=== PATIENT | female | born 1935 | race Caucasian/White ===

== ENCOUNTER → 2016-12-11 | Outpatient (CLI) | payer OTHER, MEDICARE | LOC: FIMAGING 15:07 | PROVIDERS: ATTEND Orthopaedic Surgery | DX: Z01.818 Encounter for other preprocedural examination (principal); M17.11 Unilateral primary osteoarthritis, right knee ==

== ENCOUNTER 2016-12-24 08:39 | Observation (INO) | payer OTHER, MEDICARE ==
[2016-12-11 16:18] LABS: % IMMATURE GRANULYOCYTES 0.3 % (0.0-1.1); ABSOLUTE IMMATURE GRANULOCYTES 0.02 10^3/uL (0.00-0.10); ADD DIFF? NO; ADD MORPH? NO; ADD SCAN? NO; ATYPICAL LYMPHOCYTE FLAG 10 (0-99); FRAGMENT RBC FLAG 10 (0-99); HEMATOCRIT 43.1 % (38.0-47.0); HEMOGLOBIN 14.5 g/dL (12.6-16.3); LEFT SHIFT FLG 0 (0-99); LIPEMIA HEMOLYSIS FLAG 80 (0-99); MEAN CELL HEMOGLOBIN 31.5 pg (27.9-34.1); MEAN CELL HEMOGLOBIN CONCENTR. 33.6 g/dL (32.4-36.7); MEAN CELL VOLUME 93.7 fL (81.5-99.8); MEAN PLATELET VOLUME 9.9 fL (8.7-11.7); PLATELET CLUMPS FLAG 0 (0-99); PLATELET COUNT 260 10^3/uL (150-400); RED CELL DISTRIBUTION WIDTH 13.5 % (11.5-15.2)
--- NOTE | 2016-12-12 07:53 | CPEKG ---
Heart Rate: 82 RR Interval: 732 P-R Interval: 128 QRSD Interval: 94 QT Interval: 376 QTC Interval: 439 P [place]: 75 QRS [place]: 4 T Wave [place]: 68 EKG Severity - ABNORMAL ECG - EKG Impression: SINUS RHYTHM EKG Impression: CONSIDER ANTEROSEPTAL INFARCT Electronically Signed By: Cale Mckeon 12-Dec-2016 12:47:02
[~2016-12-24 08:39] MED LIST: ACETAMINOPHEN 325 MG TAB PO ONE; CEFAZOLIN 2 GM/DEXTR 100 ML IV ONE; CHLORHEXIDINE GLUC HIBICLENS 118 ML BTL TP ONE; DEXAMETHASONE 4 MG/ML VIAL IVP ONE; FAMOTIDINE 20 MG TAB PO ONE; ROPI/epiNEPH/KETOROLAC JOINT COCKTAIL IU ONE; TRANEXAMIC ACID 3,000 MG in NS 50 ML IRR ONE; TRANEXAMIC ACID 3,000 MG/50 ML BAG IRR ONE; VANCOMYCIN 1 GM VIAL IV ONE
[2016-12-24] MEDS ORDERED: FAMOTIDINE 20 MG TAB ONE (09:27)
[2016-12-24] MEDS ORDERED: DEXAMETHASONE 4 MG/ML VIAL ONE (09:27)
[2016-12-24] MEDS ORDERED: CEFAZOLIN 2 GM/DEXTROSE/100 ML BAG IV ONE (09:27)
[2016-12-24] MEDS ORDERED: ACETAMINOPHEN 325 MG TAB ONE (09:31)
[2016-12-24] MEDS ORDERED: ACETAMINOPHEN 500 MG TAB ONE (09:46)
[2016-12-24] MEDS ORDERED: MIDAZOLAM 2 MG/2 ML VIAL ONE ×2 (10:03→10:52)
[2016-12-24] MEDS ORDERED: PROPOFOL/EMULSION 500 MG/50 ML BOTTLE IV ONE (10:03)
[2016-12-24] MEDS ORDERED: fentaNYL 100 MCG/2 ML INJ ONE (10:03)
[2016-12-24] MEDS ORDERED: LR 1,000 ML IV ONE (10:56)
[2016-12-24] MEDS ORDERED: BUPIVACAINE/EPI 0.5% 30 ML SDV ONE (11:09)
[2016-12-24] MEDS ORDERED: MAGNESIUM HYDROXIDE 30 ML UDCUP PO PRN (11:36)
[2016-12-24] MEDS ORDERED: ONDANSETRON DISINTEGRATING 4 MG TAB PO PRN (11:36)
[2016-12-24] MEDS ORDERED: TEMAZEPAM 15 MG CAP PO PRN (11:36)
[2016-12-24] MEDS ORDERED: oxyCODONE IR 5 MG TAB PO PRN (11:36)
[2016-12-24] MEDS ORDERED: PHARMACY PAIN CONSULT 1 EA MISC PRN (11:36)
[2016-12-24] MEDS ORDERED: PROMETHAZINE HCL 25 MG SUPPR PR PRN (11:36)
[2016-12-24] MEDS ORDERED: BISACODYL 10 MG SUPP PR PRN (11:36)
[2016-12-24] MEDS ORDERED: POLYETHYLENE GLYCOL 3350 17 GM PKT PO PRN (11:36)
[2016-12-24] MEDS ORDERED: CYCLOBENZAPRINE 10 MG TAB PO PRN (11:36)
[2016-12-24] MEDS ORDERED: LACTULOSE 20 GM/30 ML UDCUP PO PRN (11:36)
[2016-12-24] MEDS ORDERED: ONDANSETRON 4 MG/2 ML VIAL IVP PRN (11:36)
[2016-12-24] MEDS ORDERED: METOCLOPRAMIDE 10 MG/2 ML VIAL IVP PRN (11:36)
[2016-12-24] MEDS ORDERED: diphenhydrAMINE 25 MG CAP PO PRN (11:36)
[2016-12-24] MEDS ORDERED: LR 1,000 ML IV SCH (12:00)
[2016-12-24] MEDS: ACETAMINOPHEN 325 MG TAB PO SCH ×2 (12:17→16:50)
--- NOTE | 2016-12-24 12:25 | POSTOPPROG ---
Post Op Note Date of Operation: 12/24/16 Surgeon: Leonidas Benson Solar Manager: Ekaterina Benson PAc Anesthesiologist: Mari Anesthesia: Spinal Pre-op Diagnosis: R knee DJD Post-op Diagnosis: same Indication: pain Procedure: R med mpl Findings: med OA Inf/Abcess present in the surg proc area at time of surgery?: No EBL: 50-100
[2016-12-24] MEDS: ceFAZolin 2 GM/DEXTROSE 100 ML IV SCH (16:46)
[2016-12-24] MEDS: ASPIRIN 325 MG TAB PO SCH (20:06)
[2016-12-24] MEDS: CYCLOSPORINE 0.05% 1 EACH BOX EACHEYE SCH (20:06)
[2016-12-24] MEDS: SENNOSIDES/DOCUSATE SODIUM TAB PO SCH (20:06)
[2016-12-24] MEDS: FAMOTIDINE 20 MG TAB PO SCH (20:06)
[2016-12-25] MEDS: ceFAZolin 2 GM/DEXTROSE 100 ML IV SCH (00:15)
[2016-12-25] MEDS: ACETAMINOPHEN 325 MG TAB PO SCH ×3 (00:15→11:46)
[2016-12-25 05:33] LABS: HEMATOCRIT 38.4 % (38.0-47.0); HEMOGLOBIN 13.1 g/dL (12.6-16.3)
[2016-12-25 05:46] LABS: ANION GAP 9 mEq/L (8-16); CALCIUM 9.5 mg/dL (8.5-10.4); CARBON DIOXIDE 23 mEq/l (22-31); CHLORIDE 109 mEq/L (97-110); CREATININE 0.9 mg/dL (0.6-1.0); GLOMERULAR FILTRATION RATE > 60; GLUCOSE 88 mg/dL (70-100); POTASSIUM 4.5 mEq/L (3.5-5.2); SODIUM 141 mEq/L (134-144)
[2016-12-25 05:54] VITALS: RESP 18
[2016-12-25 08:05] VITALS: BP 144/72; PULSE 92; O2SAT 98
[2016-12-25 08:50] VITALS: TEMP 97.7
[2016-12-25] MEDS ORDERED: ATORVASTATIN CALCIUM 10 MG TAB PO SCH (09:00)
--- NOTE | 2016-12-25 09:18 | SOAPPROG ---
SOAP Progress Note Assessment/Plan: Assessment: Patient is doing well POD 1 s/p R med MPL Pain management: pain is well controlled on oral pain meds. VTE ppx: recommend aspirin daily for 3 weeks, cont WENCESLAO and SCDs D/c planning: d/c to home today pending release from PT postop urinary retention: straight cath'd yesterday, resolved today. Plan: 12/25/16 09:16 Subjective: Rosina is doing well today ,denies SOB, chest pain and N/V Objective: Vital Signs Temp Pulse Resp BP Pulse Ox 36.5 C 92 18 144/72 H 98 12/25/16 08:49 12/25/16 08:03 12/25/16 08:03 12/25/16 08:03 12/25/16 08:03 Laboratory Results 12/25/16 04:40 12/25/16 04:40 12/24/16 12/25/16 12/26/16 05:59 05:59 05:59 Intake Total 1890 Output Total 1730 Balance 160 RLE: incision dressing is clean and dry, NVI, +pf/df ICD10 Worksheet Patient Problems: Problems Problem Status Onset Primary localized osteoarthritis of right knee Acute
--- NOTE | 2016-12-25 09:46 | GDS ---
[f rep st] DISCHARGE SUMMARY ADMISSION DIAGNOSIS: Right knee osteoarthritis. DISCHARGE DIAGNOSIS: Right knee osteoarthritis. PROCEDURE: Right partial knee arthroplasty, medial compartment, robot assisted. VTE PROPHYLAXIS: Aspirin recommended for 3 weeks daily. BRIEF DESCRIPTION OF HOSPITAL STAY: Patient was admitted for an elective joint arthroplasty. The p atient tolerated the procedure well and has passed physical therapy. The patient was given appropri ate antibiotic prophylaxis and venous thromboembolism prophylaxis. The patient's pain was well cont rolled on oral pain medication, patient was holding down food, and had urinated. Decision was made to discharge the patient. The patient was given post-operative prescriptions pre-operatively. PLAN: Please follow up as scheduled in Dr. Benson's office on January 15 at 1:45 p.m. /[id number]/MODL
[2016-12-25] MEDS: ASPIRIN 325 MG TAB PO SCH (09:54)
[2016-12-25] MEDS: SENNOSIDES/DOCUSATE SODIUM TAB PO SCH (09:54)
[2016-12-25] MEDS: FAMOTIDINE 20 MG TAB PO SCH (09:54)
[2016-12-25] MEDS: CYCLOSPORINE 0.05% 1 EACH BOX EACHEYE SCH (09:55)
--- NOTE | 2016-12-25 16:28 | GOP ---
[f rep st] OPERATIVE REPORT DATE OF OPERATION: 12/24/2016 SURGEON: Sparkle Benson MD COSTUME TECHNICIAN: DEVON Santillan PREOPERATIVE DIAGNOSIS: Right knee osteoarthritis. POSTOPERATIVE DIAGNOSIS: Right knee osteoarthritis. PROCEDURE PERFORMED: Right medial compartment partial knee replacement with computer navigation and robotic assist. ANESTHESIA: Spinal. FINDINGS: Severe medial OA ESTIMATED BLOOD LOSS: 30 cc. INDICATIONS: This is a 81 year old female with progressive pain of the right knee unresponsive to conservative care. Risks and benefits of surgical intervention were explained in detail. DESCRIPTION OF PROCEDURE: The patient was brought to the operating room and placed on the table in supine position. Spinal anesthesia was induced without difficulty. A pneumatic tourniquet was applied about the right proximal thigh and the leg was prepped and draped in sterile fashion. Attention was turned first to the distal aspect of the right femur. At 3 cm proximal to the lateral rise of the femur, 2 percutaneous half pins were placed for fixation of the femoral array. In a similar fashion, 2 pins were placed anterolateral on the tibia for fixation of the tibial array. External land marking and registration of the hip center was performed without difficulty. After exsanguination by elevation, the tourniquet was inflated to 250 mmHg. Incision was made from the tibial tuberosity to the superior pole of the patella. Dissection was carried out through the subcutaneous tissue to the deep fascia using Bovie electrocautery for hemostasis. Medial parapatellar arthrotomy was carried out to the superior pole of the patella. The medial collateral ligament was elevated and the infrapatellar fat pad was resected. Internal femoral and tibial registration was carried out without difficulty and the femoral and tibial checkpoints were placed and verified for accuracy. Attention was turned to the femur. The foot print for the size 2 femoral component was cut with the 6 mm bur using the [employer] robotic system and verified for accuracy against the CT based plan. The hole was cut for the femoral post. In a similar fashion, the 6 mm bur was used to cut the foot print for the size 3 tibial component using the [employer] system and verified for accuracy against the CT based plan. Attention was turned to the posterior aspect of the knee and remnants of the medial meniscus were excised. The posterior capsule was injected with ropivacaine, epinephrine and Toradol. Trial reduction was carried out and there was excellent range of motion, alignment and stability using the size 2 femoral component and the size 3 tibial component, 3 x 8 mm polyethylene. All trials were then removed. The joint was thoroughly irrigated and carefully dried. One package of cement and 1 gram of vancomycin were mixed in the vacuum mixer and placed on the fixation surfaces of all components. The components were implanted and all excess cement was thoroughly removed. Implant placement was verified against the CT view plan and found to be excellent. The tourniquet was deflated and all bleeders were coagulated. The wound was thoroughly irrigated and closed using interrupted sutures of 2-0 Vicryl for the joint capsule. The subcu was closed with 3-0 Vicryl and the skin with 4-0 Monocryl. Dermabond and Steri-Strips were applied, followed by a compressive dressing. The patient was then moved from the operating room to the recovery room in good condition, having tolerated the procedure well. CASE CLASSIFICATION: Clean. /[id number]/MODL MTDD
== END 2016-12-25 13:02 | disposition home or self-care (01) ==
LOC: INTOOBSV 08:39 → F3N 08:39
PROVIDERS: ADMIT Orthopaedic Surgery; ATTEND Orthopaedic Surgery
PROC: 8E0YXBZ Computer Assisted Procedure of Lower Extremity (ICD-10-PCS; principal; 2016-12-24 11:15)
PROC: 0SRC0JZ Replacement of Right Knee Joint with Synthetic Substitute, Open Approach (ICD-10-PCS; principal; 2016-12-24 11:15)
DX: M17.11 Unilateral primary osteoarthritis, right knee (principal)
CPT/HCPCS: 20985; 27446; 73560; 93005; 97116; 97161; 97165; C1713; C1776; G8978; G8979; G8980; G8987; G8988; G8989; J0171; J0690; J1100; J1885; J2250; J2704; J2795; J3010; J3370

== ENCOUNTER → 2017-02-19 | Outpatient (CLI) | payer OTHER, MEDICARE | LOC: FIMAGING 13:53 | PROVIDERS: ATTEND Orthopaedic Surgery | DX: M17.12 Unilateral primary osteoarthritis, left knee (principal); M25.462 Effusion, left knee ==

== ENCOUNTER 2017-02-27 05:48 | Observation (INO) | payer OTHER, MEDICARE ==
[2017-02-27] MEDS ORDERED: ROPIVACAINE 0.2% 80 MG, EPINEPHrine 0.2 MG, KETOROLAC TROMETHAMINE 30 MG in BAG 0 ML IU ONE (06:00)
[2017-02-27] MEDS ORDERED: TRANEXAMIC ACID 3,000 MG in NS 50 ML IRR ONE (06:00)
[2017-02-27] MEDS ORDERED: NON-FORMULARY NEW DRUG (Cyclosporine 0.05% [Restasis Opht Drops(*)] 1 DROP) EACHEYE SCH (06:12)
[2017-02-27] MEDS ORDERED: ceFAZolin 2 GM/DEXTROSE 100 ML IV ONE (06:12)
[2017-02-27] MEDS ORDERED: ACETAMINOPHEN 325 MG TAB PO ONE (06:12)
[2017-02-27] MEDS ORDERED: FAMOTIDINE 20 MG TAB PO ONE (06:12)
[2017-02-27] MEDS ORDERED: DEXAMETHASONE 4 MG/ML VIAL IVP ONE (06:12)
[2017-02-27] MEDS ORDERED: LR 1,000 ML IV ONE (06:19)
[2017-02-27] MEDS ORDERED: LIDOCAINE 1% 2 ML INJ ID PRN (06:19)
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
[2017-02-27] MEDS ORDERED: TRANEXAMIC ACID 3,000 MG/50 ML BAG IRR ONE (06:32)
[2017-02-27] MEDS ORDERED: VANCOMYCIN 1 GM VIAL ONE (06:32)
[2017-02-27] MEDS ORDERED: LIDOCAINE 1% 2 ML INJ ONE (06:36)
--- NOTE | 2017-02-27 07:02 | PDHPUP ---
History & Physical Update H&P update statement: This history and physical update is based on an assessment of the patient which was completed after admission or registration (within 24 hours), but prior to the surgery/procedure. H&P update: H&P reviewed & patient examined, no change in patient's condition since H&P completed
[2017-02-27] MEDS ORDERED: MIDAZOLAM 2 MG/2 ML VIAL IVP ONE (07:11)
[2017-02-27] MEDS ORDERED: MIDAZOLAM 2 MG/2 ML VIAL ONE (07:12)
[2017-02-27] MEDS ORDERED: fentaNYL 100 MCG/2 ML INJ ONE (07:14)
[2017-02-27] MEDS ORDERED: PROPOFOL 200 MG/20 ML VIAL ONE ×2 (07:15→07:48)
[2017-02-27] MEDS ORDERED: ROPIVACAINE HCL 150 MG/30 ML INJ ONE (08:09)
[2017-02-27] MEDS ORDERED: clonIDINE 1 MG/10 ML VIAL EP ONE (08:09)
[2017-02-27] MEDS ORDERED: fentaNYL 100 MCG/2 ML INJ IVP PRN (08:25)
[2017-02-27] MEDS ORDERED: NALOXONE HCL 0.4 MG/ML INJ IVP PRN (08:25)
[2017-02-27] MEDS ORDERED: BISACODYL 10 MG SUPP PR PRN (08:49)
[2017-02-27] MEDS ORDERED: CYCLOBENZAPRINE 10 MG TAB PO PRN (08:49)
[2017-02-27] MEDS ORDERED: PHARMACY PAIN CONSULT 1 EA MISC PRN (08:49)
[2017-02-27] MEDS ORDERED: LACTULOSE 20 GM/30 ML UDCUP PO PRN (08:49)
[2017-02-27] MEDS ORDERED: ONDANSETRON 4 MG/2 ML VIAL IVP PRN (08:49)
[2017-02-27] MEDS ORDERED: MAGNESIUM HYDROXIDE 30 ML UDCUP PO PRN (08:49)
[2017-02-27] MEDS ORDERED: METOCLOPRAMIDE 10 MG/2 ML VIAL IVP PRN (08:49)
[2017-02-27] MEDS ORDERED: TEMAZEPAM 15 MG CAP PO PRN (08:49)
[2017-02-27] MEDS ORDERED: ONDANSETRON DISINTEGRATING 4 MG TAB PO PRN (08:49)
[2017-02-27] MEDS ORDERED: diphenhydrAMINE 25 MG CAP PO PRN (08:49)
[2017-02-27] MEDS ORDERED: POLYETHYLENE GLYCOL 3350 17 GM PKT PO PRN (08:49)
--- NOTE | 2017-02-27 08:49 | POSTOPPROG ---
Post Op Note Date of Operation: 02/27/17 Surgeon: Leonidas Hollingsworth Panama Hat Blocker: ruslan hollingsworth Anesthesiologist: dr. burger Anesthesia: Spinal, Other (Specify) (adductor canal block) Pre-op Diagnosis: left knee OA Post-op Diagnosis: same Indication: left knee pain that failed conservative measures Procedure: L med MPL robot assisted Findings: severe knee OA Inf/Abcess present in the surg proc area at time of surgery?: No EBL: 50-100
[2017-02-27] MEDS ORDERED: ATORVASTATIN CALCIUM 10 MG TAB PO SCH ×2 (09:00→21:00)
[2017-02-27] MEDS ORDERED: LR 1,000 ML IV SCH (09:00)
--- NOTE | 2017-02-27 09:07 | POSTANESTH ---
Post Anesthetic Evaluation Cardiovascular Status: Normal, Stable Respiratory Status: Normal, Stable Level of Consciousness/Mental Status: Can Participate in Eval Pain Control: Adequate, Prn Tx Ordered Nausea/Vomiting Control: Adequate, Prn Tx Ordered Complications Possibly Related to Anesthesia: None Noted
[2017-02-27] MEDS: ACETAMINOPHEN 325 MG TAB PO SCH ×3 (12:07→23:35)
[2017-02-27] MEDS: SENNOSIDES/DOCUSATE SODIUM TAB PO SCH ×2 (13:45→20:14)
[2017-02-27] MEDS: ceFAZolin 2 GM/DEXTROSE 100 ML IV SCH ×2 (13:58→22:22)
[2017-02-27] MEDS: CYCLOSPORINE 0.05% 1 EACH BOX EACHEYE SCH ×2 (16:55→20:18)
[2017-02-27 19:44] VITALS: RESP 16
[2017-02-27] MEDS: FAMOTIDINE 20 MG TAB PO SCH (20:13)
[2017-02-27] MEDS: ASPIRIN 325 MG TAB PO SCH (20:14)
[2017-02-27] MEDS: oxyCODONE IR 5 MG TAB PO PRN (23:38)
[2017-02-28 05:18] LABS: HEMATOCRIT 38.4 % (38.0-47.0)
[2017-02-28 05:29] LABS: ANION GAP 11 mEq/L (8-16); CALCIUM 9.8 mg/dL (8.5-10.4); CARBON DIOXIDE 22 mEq/l (22-31); CHLORIDE 109 mEq/L (97-110); GLOMERULAR FILTRATION RATE 53; GLUCOSE 85 mg/dL (70-100); POTASSIUM 4.3 mEq/L (3.5-5.2); SODIUM 142 mEq/L (134-144)
[2017-02-28] MEDS: oxyCODONE IR 5 MG TAB PO PRN ×2 (05:55→11:40)
[2017-02-28] MEDS: ACETAMINOPHEN 325 MG TAB PO SCH ×2 (05:55→11:41)
[2017-02-28 08:16] VITALS: BP 111/47; PULSE 88; TEMP 98; O2SAT 97
[2017-02-28] MEDS ORDERED: NON-FORMULARY NEW DRUG (Simvastatin [Zocor] 20 MG) PO SCH (09:00)
[2017-02-28] MEDS: SENNOSIDES/DOCUSATE SODIUM TAB PO SCH (09:51)
[2017-02-28] MEDS: FAMOTIDINE 20 MG TAB PO SCH (09:51)
[2017-02-28] MEDS: ASPIRIN 325 MG TAB PO SCH (09:51)
[2017-02-28] MEDS: CYCLOSPORINE 0.05% 1 EACH BOX EACHEYE SCH (09:52)
--- NOTE | 2017-02-28 09:54 | SOAPPROG ---
SOAP Progress Note Assessment/Plan: Assessment: Rosina is doing well POD 1 s/p L med MPL 1) pain management: pain is well controlled on oral pain meds 2) VTE ppx: recommend aspirin daily and WENCESLAO hose 3) d/c planning: d/c to home pending release from PT today Plan: 02/28/17 09:52 Subjective: Rosina is doing well this morning, denies SOB ,chest pain and N/V. Objective: Vital Signs Temp Pulse Resp BP Pulse Ox 36.7 C 88 16 111/47 L 97 02/28/17 08:00 02/28/17 08:00 02/28/17 08:00 02/28/17 08:00 02/28/17 08:00 Laboratory Results 02/28/17 04:30 02/28/17 04:30 02/27/17 02/28/17 03/01/17 05:59 05:59 05:59 Intake Total 3400 Output Total 2975 Balance 425 LLE: incisino dressing is clean and dry, NVI, +pf/df ICD10 Worksheet Patient Problems: Problems Problem Status Onset Primary localized osteoarthritis of right knee Acute
--- NOTE | 2017-03-05 07:08 | GOP ---
[f rep st] OPERATIVE REPORT DATE OF OPERATION: 02/27/2017 SURGEON: Sparkle Benson MD EDUCATIONAL COORDINATOR: NACHO Riley. ANESTHESIA: Spinal. PREOPERATIVE DIAGNOSIS: Left knee osteoarthritis. POSTOPERATIVE DIAGNOSIS: Left knee osteoarthritis. PROCEDURE PERFORMED: Left medial partial knee replacement. FINDINGS: INDICATIONS: This is an 82-year-old female with progressive pain of the left knee unresponsive to conservative care. Risks and benefits of surgical intervention were explained in detail. DESCRIPTION OF PROCEDURE: The patient was brought to the operating room and placed on the table in supine position. Spinal anesthesia was induced without difficulty. A pneumatic tourniquet was applied about the left proximal thigh and the leg was prepped and draped in sterile fashion. Attention was turned first to the distal aspect of the left femur. At 3 cm proximal to the lateral rise of the femur, 2 percutaneous half pins were placed for fixation of the femoral array. In a similar fashion, 2 pins were placed anterolateral on the tibia for fixation of the tibial array. External land marking and registration of the hip center was performed without difficulty. After exsanguination by elevation, the tourniquet was inflated to 250 mmHg. Incision was made from the tibial tuberosity to the superior pole of the patella. Dissection was carried out through the subcutaneous tissue to the deep fascia using Bovie electrocautery for hemostasis. Medial parapatellar arthrotomy was carried out to the superior pole of the patella. The medial collateral ligament was elevated and the infrapatellar fat pad was resected. Internal femoral and tibial registration was carried out without difficulty and the femoral and tibial checkpoints were placed and verified for accuracy. Attention was turned to the femur. The foot print for the size 3 femoral component was cut with the 6 mm bur using the [employer] robotic system and verified for accuracy against the CT based plan. The hole was cut for the femoral post. In a similar fashion, the 6 mm bur was used to cut the foot print for the size 3 tibial component using the [employer] system and verified for accuracy against the CT based plan. Attention was turned to the posterior aspect of the knee and remnants of the medial meniscus were excised. The posterior capsule was injected with ropivacaine, epinephrine and Toradol. Trial reduction was carried out and there was excellent range of motion, alignment and stability using the size 3 femoral component and the size 3 tibial component. All trials were then removed. The joint was thoroughly irrigated and carefully dried. One package of cement and 1 gram of vancomycin were mixed in the vacuum mixer and placed on the fixation surfaces of all components. The components were implanted and all excess cement was thoroughly removed. Implant placement was verified against the CT view plan and found to be excellent. The tourniquet was deflated and all bleeders were coagulated. The wound was thoroughly irrigated and closed using interrupted sutures of 2-0 Vicryl for the joint capsule. The subcu was closed with 3-0 Vicryl and the skin with 4-0 Monocryl. Dermabond and Steri-Strips were applied, followed by a compressive dressing. The patient was then moved from the operating room to the recovery room in good condition, having tolerated the procedure well. PATHOLOGY: Severe medial compartment osteoarthritis. CASE CLASSIFICATION: Clean. /[id number]/MODL MTDD
--- NOTE | 2017-03-05 09:23 | GDS ---
[f rep st] DISCHARGE SUMMARY ADMISSION DIAGNOSIS: Left knee osteoarthritis. DISCHARGE DIAGNOSIS: Left knee osteoarthritis. PROCEDURE: Left partial knee arthroplasty, medial compartment, robot assisted. VTE PROPHYLAXIS: Aspirin recommended 3 weeks daily. BRIEF DESCRIPTION OF HOSPITAL STAY: Patient was admitted for an elective joint arthroplasty. The p atient tolerated the procedure well and has passed physical therapy. The patient was given appropri ate antibiotic prophylaxis and venous thromboembolism prophylaxis. The patient's pain was well cont rolled on oral pain medication, patient was holding down food, and had urinated. Decision was made to discharge the patient. The patient was given post-operative prescriptions pre-operatively. PLAN: Follow up as scheduled March 19 at 1:45 p.m. /[id number]/MODL
== END 2017-02-28 11:45 | disposition home or self-care (01) ==
LOC: F3N 05:48 → INTOOBSV 05:48 → F3N 10:16
PROVIDERS: ADMIT Orthopaedic Surgery; ATTEND Orthopaedic Surgery
PROC: 0SRD0JZ Replacement of Left Knee Joint with Synthetic Substitute, Open Approach (ICD-10-PCS; principal; 2017-02-27 07:15)
PROC: 8E0Y0CZ Robotic Assisted Procedure of Lower Extremity, Open Approach (ICD-10-PCS; principal; 2017-02-27 07:15)
DX: M17.12 Unilateral primary osteoarthritis, left knee (principal)
CPT/HCPCS: 27446; 73560; 97116; 97161; C1713; C1776; G8978; G8979; G8980; J0171; J0690; J0735; J1100; J1885; J2250; J2704; J2795; J3010; J3370